=== PATIENT | male | born 1955 | race Caucasian/White ===

== ENCOUNTER 2020-04-30 10:54 | Observation (INO) | payer MEDICARE, OTHER ==
[2020-04-30] MEDS ORDERED: Sodium Chloride 0.9% 2.5 ML Syringe FLUSH PRN (11:01)
[2020-04-30] MEDS ORDERED: Sodium Chloride 0.9% 10 ML SDV IV PRN (11:01)
[2020-04-30] MEDS ORDERED: Sodium Chloride 0.9% 10 ML Syringe FLUSH PRN (11:01)
--- NOTE | 2020-04-30 11:24 | EDM.PDOC ---
ED HPI GENERAL MEDICAL PROBLEM - General Chief Complaint: Neuro Symptoms/Deficits Stated Complaint: STROKE SYMPTOMS Time Seen by Provider: 04/30/20 11:05 Source of Information: Reports: Patient History Limitations: Reports: No Limitations - History of Present Illness INITIAL COMMENTS - FREE TEXT/NARRATIVE: 65-year-old male no significant past medical history presents for concern for stroke. Patient was seen in an outpatient clinic by this morning. He woke up around 7 AM and states that shortly after waking up he noticed weakness of his left upper extremity. It is primarily noticed in his fourth and fifth digits of his left hand. No associated numbness or tingling sensation, sensory deficit. No weakness of lower extremities. Denies slurred speech, confusion, word finding difficulty. He took 2 baby aspirins at home prior to arrival. He thinks that symptoms were not present after waking up and states that they happen shortly after waking up, but he says that he cannot be certain. - Related Data Allergies Allergy/AdvReac Type Severity Reaction Status Date / Time No Known Allergies Allergy Verified 04/05/18 14:07 Home Meds: Home Meds Latanoprost [Xalatan 0.005% Ophth Soln] 1 drop EYEBOTH BEDTIME 04/05/16 [History] Aspirin 325 mg PO DAILY 04/05/18 [History] Sildenafil [Revatio] 2 - 4 tab PO ASDIRECTED PRN 04/05/18 [History] Past Medical History HEENT History: Reports: Glaucoma, Other (See Below) (right TMJ problems) Other HEENT History: uses glasses for driving Cardiovascular History: Reports: Other (See Below) Other Cardiovascular History: mild mitral regurgitation per chart, h/o HTN, h/o increased cholesterol, small vessel cerebrovascular disease Respiratory History: Reports: Sleep Apnea, SOB (on exertion) Other Respiratory History: uses CPAP Gastrointestinal History: Reports: Colon Polyp, Hiatal Hernia, Other (See Below) (diverticulosis diverticulosis) Other Genitourinary History: UTI in December, Musculoskeletal History: Reports: Arthritis, Fracture, Gout Other Musculoskeletal History: only takes medication during flare ups, hx of fx left arm Neurological History: Reports: Other (See Below) Other Neuro History: was told he had "mini strokes" and was prescribed a CPAP machine Psychiatric History: Reports: None Endocrine/Metabolic History: Reports: Obesity/BMI 30+ Hematologic History: Reports: None Immunologic History: Reports: None Oncologic (Cancer) History: Reports: None Dermatologic History: Reports: None - Past Surgical History Head Surgeries/Procedures: Reports: None HEENT Surgical History: Reports: Tonsillectomy GI Surgical History: Reports: Colonoscopy (x2) Musculoskeletal Surgical History: Reports: Arthroscopic Knee - History Comment History Comment: denies etoh ED ROS GENERAL - Review of Systems Review Of Systems: Comprehensive ROS is negative, except as noted in HPI. ED EXAM, GENERAL - Physical Exam Exam: See Below Exam Limited By: No Limitations General Appearance: Alert, WD/WN, No Apparent Distress Eye Exam: Bilateral Eye: EOMI, PERRL Ears: Normal External Exam Nose: Normal Inspection Throat/Mouth: Normal Inspection, Normal Voice, No Airway Compromise, Perioral Cyanosis Head: Atraumatic Neck: Normal Inspection Respiratory/Chest: No Respiratory Distress, Lungs Clear, Normal Breath Sounds, No Accessory Muscle Use Cardiovascular: Normal Peripheral Pulses, Regular Rate, Rhythm, No Edema GI/Abdominal: Soft, Non-Tender Back Exam: Normal Inspection Extremities: Normal Inspection Neurological: Alert, Oriented, CN II-XII Intact, Normal Cognition, Normal Gait, Other (no sensory deficits, no pronater drift b/l UE, no drift LE, normal mm strength b/l LE, normal national sales trainer strength RUE, reduced national sales trainer strength 4/5 LUE) Psychiatric: Normal Affect, Normal Mood Skin Exam: Warm, Dry, Intact, Normal Color #1 Interpretation EKG Date: 04/30/20 Time: 11:00 Rhythm: NSR Rate (Beats/Min): 65 [place]: Normal P-Wave: Present QRS: Normal ST-T: Normal QT: Normal MO/PQ Interval: 186 Course - Vital Signs Last Recorded V/S: Last Vital Signs Temp 97.2 F 04/30/20 11:06 Pulse 55 L 04/30/20 11:06 Resp 17 04/30/20 11:06 BP 152/102 H 04/30/20 11:06 Pulse Ox 97 04/30/20 11:06 - Orders/Labs/Meds Orders: Active Orders 24 hr Category Date Time Status Assess Neurological Status [RC] ASDIRECTED Care 04/30/20 11:01 Active Bedrest [RC] ASDIRECTED Care 04/30/20 11:01 Active Cardiac Monitoring [RC] . DIRECTED Care 04/30/20 11:01 Active EKG Documentation Completion [RC] STAT Care 04/30/20 11:01 Active Initiate Acute Stroke Protocol [RC] STAT Care 04/30/20 11:01 Active NIH Stroke Scale [RC] ASDIRECTED Care 04/30/20 11:01 Active Nursing Bedside Swallow Screen [RC] ASDIRECTED Care 04/30/20 11:01 Active Oxygen Therapy [RC] ASDIRECTED Care 04/30/20 11:01 Active Vital Signs [RC] Q15M Care 04/30/20 11:01 Active COMPREHENSIVE METABOLIC PN,CMP [CHEM] Stat Lab 04/30/20 11:10 Received TROPONIN I [CHEM] Stat Lab 04/30/20 11:10 Received TSH [CHEM] Stat Lab 04/30/20 11:10 Received Sodium Chloride 0.9% [Normal Saline] Med 04/30/20 11:01 Active 10 ml IV ASDIRECTED PRN Sodium Chloride 0.9% [Saline Flush] Med 04/30/20 11:01 Active 10 ml FLUSH ASDIRECTED PRN Sodium Chloride 0.9% [Saline Flush] Med 04/30/20 11:01 Active 2.5 ml FLUSH ASDIRECTED PRN Peripheral IV Insertion Adult [OM.PC] Stat Oth 04/30/20 11:01 Ordered Peripheral IV Insertion Adult [OM.PC] Stat Oth 04/30/20 11:01 Ordered Medication Orders Sodium Chloride (Saline Flush) 10 ml FLUSH ASDIRECTED PRN PRN Reason: Keep Vein Open Last Admin: 04/30/20 12:54 Dose: 10 ml Documented by: ARANANG Sodium Chloride (Saline Flush) 2.5 ml FLUSH ASDIRECTED PRN PRN Reason: Keep Vein Open Last Admin: 04/30/20 12:54 Dose: 2.5 ml Documented by: ARANANG Sodium Chloride (Normal Saline) 10 ml IV ASDIRECTED PRN PRN Reason: IV Use Labs: Laboratory Tests 04/30/20 04/30/20 04/30/20 Range/Units 11:10 11:10 13:15 WBC 8.13 (4.0-11.0) K/uL RBC 5.23 (4.50-5.90) M/uL Hgb 16.1 (13.0-17.0) g/dL Hct 48.1 (38.0-50.0) % MCV 92.0 (80.0-98.0) fL MCH 30.8 (27.0-32.0) pg MCHC 33.5 (31.0-37.0) g/dL RDW Std Deviation 44.5 (28.0-62.0) fl RDW Coeff of Francine 13 (11.0-15.0) % Plt Count 329 (150-400) K/uL MPV 10.50 (7.40-12.00) fL Neut % (Auto) 63.5 (48.0-80.0) % Lymph % (Auto) 26.1 (16.0-40.0) % Kimball % (Auto) 6.6 (0.0-15.0) % Eos % (Auto) 3.3 (0.0-7.0) % Baso % (Auto) 0.5 (0.0-1.5) % Neut # (Auto) 5.2 (1.4-5.7) K/uL Lymph # (Auto) 2.1 (0.6-2.4) K/uL Kimball # (Auto) 0.5 (0.0-0.8) K/uL Eos # (Auto) 0.3 (0.0-0.7) K/uL Baso # (Auto) 0.0 (0.0-0.1) K/uL Nucleated RBC % 0.0 /100WBC Nucleated RBCs # 0 K/uL INR 1.07 APTT 27.4 (18.6-31.3) SEC Urine Color YELLOW Urine Appearance CLEAR Urine pH 7.0 (5.0-8.0) Ur Specific [place] <= 1.005 (1.001-1.035) Urine Protein NEGATIVE (NEGATIVE) mg/dL Urine Glucose (UA) NEGATIVE (NEGATIVE) mg/dL Urine Ketones NEGATIVE (NEGATIVE) mg/dL Urine Occult Blood NEGATIVE (NEGATIVE) Urine Nitrite NEGATIVE (NEGATIVE) Urine Bilirubin NEGATIVE (NEGATIVE) Urine Urobilinogen 0.2 (<2.0) EU/dL Ur Leukocyte Esterase NEGATIVE (NEGATIVE) Urine RBC 0-1 (0-2/HPF) Urine WBC 0-1 (0-5/HPF) Ur Epithelial Cells RARE (NONE-FEW) Urine Bacteria RARE (NEGATIVE) Meds: Medications Generic Name Dose Route Start Last Admin Trade Name Freq PRN Reason Stop Dose Admin Sodium Chloride 10 ml 04/30/20 11:01 04/30/20 12:54 Saline Flush FLUSH 10 ml ASDIRECTED PRN Administration Keep Vein Open Sodium Chloride 2.5 ml 04/30/20 11:01 04/30/20 12:54 Saline Flush FLUSH 2.5 ml ASDIRECTED PRN Administration Keep Vein Open Sodium Chloride 10 ml 04/30/20 11:01 Normal Saline IV ASDIRECTED PRN IV Use Discontinued Medications Generic Name Dose Route Start Last Admin Trade Name Dakotaq PRN Reason Stop Dose Admin Aspirin 162 mg 04/30/20 13:06 04/30/20 13:28 Aspirin PO 04/30/20 13:07 162 mg ONETIME ONE Administration Clopidogrel Bisulfate 600 mg 04/30/20 13:05 04/30/20 13:29 Plavix PO 04/30/20 13:06 600 mg ONETIME ONE Administration Iopamidol 100 ml 04/30/20 11:29 04/30/20 11:29 Isovue Multipack-370 (76%) IVPUSH 04/30/20 11:30 100 ml ONETIME ONE Administration - Re-Assessments/Exams Free Text/Narrative Re-Assessment/Exam: 04/30/20 11:23 Patient presents with concern for CVA. Physical exam is remarkable for mild left upper extremity weakness. Possible ulnar nerve neuropathy considering distribution of patient's symptoms. A stroke code was called, and patient was taken for emergent head CT which was read by me as nonhemorrhagic. We will follow up CTA head and neck, MRI brain, labs, and disposition accordingly 04/30/20 12:14 CT head, CTA head and neck both normal. Patient was able to go for MRI, results are pending. Will follow up and disposition accordingly. 04/30/20 13:33 Spoke with neurologist at my not Dr. Galeano who recommends physical therapy consult, occupational therapy consult, carotid Doppler ultrasounds, TSH, RPR, ESR, fasting lipid panel, hemoglobin A1c, and starting a statin medication. He does not think that the patient requires transfer if this can all be done at our hospital. He notes that he is available for consultation should the inpatient team have any questions. 04/30/20 13:48 Hospitalist is comfortable with plan. Will admit to hospital Departure - Departure Time of Disposition: 13:48 Disposition: Admitted As Inpatient 64 Condition: Good Clinical Impression: CVA (cerebral vascular accident) Qualifiers: CVA mechanism: thrombosis Precerebral and cerebral artery: unspecified precerebral artery Qualified Code(s): I63.00 - Cerebral infarction due to thrombosis of unspecified precerebral artery - Discharge Information Referrals: Bright Faye MD [Primary Care Provider] - Forms: ED Department Discharge Sepsis Event Note (ED) - Focused Exam Vital Signs: Vital Signs Temp Pulse Resp BP Pulse Ox 04/30/20 11:06 97.2 F 55 L 17 152/102 H 97
[2020-04-30] MEDS ORDERED: Iopamidol 755 MG/ML 500 ML Multipack Bottle IVPUSH ONE (11:29)
--- NOTE | 2020-04-30 12:07 | CT ---
DATE: 04/30/2020. CLINICAL HISTORY: Patient with acute onset of left upper extremity weakness. TECHNIQUE: Standard helical CT image acquisition of the brain following by standard helical CT image acquisition through the head and neck after intravenous contrast bolus enhancement. Multiplanar reconstructed images performed on a separate workstation. COMPARISON: Head CT dated 09/27/2012. FINDINGS: CT HEAD: There is no intracranial hemorrhage. No extra-axial collection, mass effect, or midline shift. Patchy hypoattenuation within the white matter of both hemispheres likely reflects sequela of chronic small vessel ischemia. Ventricles are normal in size and morphology for patient age. The calvarium is unremarkable. The orbits are unremarkable. Findings consistent with chronic sinusitis involving the bilateral maxillary and frontal sinuses as well as the anterior ethmoid air cells. The mastoid air cells are unremarkable. The soft tissues are unremarkable. CT ANGIOGRAM HEAD AND NECK: The origins of the great vessels from the aortic arch are patent. The origins of the right and left vertebral arteries are patent. The common carotid arteries are patent. There is no significant stenosis at the origin of the right internal carotid artery. There is no significant stenosis at the origin of the left internal carotid artery. The rest of the cervical segments of the internal carotid arteries are patent up to their intracranial segments, noting marked tortuosity the proximal and mid cervical segment of the right internal carotid artery and a tortuous subpetrosal loop of the distal cervical left internal carotid artery. The intracranial segments of the internal carotid arteries are patent. The anterior and middle cerebral arteries are patent. Note is made of early trifurcation of the left middle cerebral artery. The anterior communicating artery is visualized and is within normal limits. The vertebral arteries are codominant. The cervical segments of the vertebral arteries are patent. The intracranial segments of the vertebral arteries are patent. The basilar trunk and posterior cerebral arteries are patent. There is normal opacification of major intracranial venous structures. The visualized lung apices are unremarkable There are multiple small nodules within the right greater than left thyroid lobes with the largest measuring approximately 7 mm and located within the posterior right lobe. There are degenerative changes in the cervical spine. IMPRESSION: 1. No acute intracranial hemorrhage. 2. Findings consistent with sequela of chronic small vessel ischemia. 3. Normal CT angiogram of the head and neck. More specifically, no evidence of intracranial proximal large vessel occlusion or hemodynamically significant stenosis within the cervical arterial vasculature. Please note that all CT scans at this facility use dose modulation, iterative reconstruction, and/or weight-based dosing when appropriate to reduce radiation dose to as low as reasonably achievable. Dictated by Chandrakant Saldaña MD @ Apr 30 2020 11:34AM Signed by Dr. Chandrakant Saldaña @ Apr 30 2020 12:05PM
--- NOTE | 2020-04-30 12:42 | MR ---
INDICATION: Left upper extremity weakness. TECHNIQUE: Brain MRI without contrast. The following sequences were obtained: 3D T1 weighted sequence. DWI and ADC mapping sequences. Axial FLAIR and YASMIN T2 weighted sequences. Axial SWI sequence. COMPARISON: Head CT from 04/30/2020. FINDINGS: Small oblong focus of true diffusion restriction involving the right mid precentral gyrus and subjacent centrum semiovale, compatible with an acute infarction no recent infarcts elsewhere within the brain. Tiny chronic infarct left anterior frontal lobe. Several small chronic infarcts within the bilateral cerebellar hemispheres. No evidence of acute or chronic intracranial blood products. Mild generalized parenchymal volume loss. Patchy T2 hyperintensities within the supratentorial white matter, most likely reflecting chronic microvascular ischemic changes. No mass effect or herniation. No hydrocephalus or extra-axial collections. The pituitary gland, parasellar structures and optic chiasm are normal. All the major intracranial vascular structures demonstrate normal flow-related signal. The orbital contents are normal. No calvarial or skull base marrow signal abnormality. Diffuse moderate paranasal sinus mucosal thickening. No extracranial soft tissue findings. IMPRESSION: 1. Small acute cortical infarct right mid precentral gyrus, which corresponds to the provided symptoms of left upper extremity weakness. No acute infarctions elsewhere within the brain. 2. No acute or chronic intracranial hemorrhage. 3. Small chronic cortical infarct left anterior frontal lobe. Small chronic infarcts bilateral cerebellar hemispheres. Minimal chronic microvascular ischemic changes within supratentorial white matter. Dictated by Jeremy Lucio MD @ Apr 30 2020 12:34PM Signed by Dr. Jeremy Lucio @ Apr 30 2020 12:40PM
[2020-04-30] MEDS ORDERED: Clopidogrel 75 MG Tab PO ONE (13:05)
[2020-04-30] MEDS ORDERED: Aspirin 81 MG Tab.Chew PO ONE (13:06)
[2020-04-30 13:39] LABS: BLOOD UREA NITROGEN,BUN 20 mg/dL (7.0-18.0); CARBON DIOXIDE,CO2 24.3 mmol/L (21.0-32.0); CHLORIDE,CL 104 mmol/L (98-107); GLUCOSE RANDOM 110 mg/dL (74-106); POTASSIUM,K 4.1 mmol/L (3.5-5.1); SODIUM,NA 140 mmol/L (136-148)
[2020-04-30] MEDS ORDERED: atorvaSTATin 40 MG Tab PO ONE ×2 (13:53→18:15)
[2020-04-30 14:20] LABS: HEMOGLOBIN A1C 5.6 % (4.5-6.2)
[2020-04-30] MEDS ORDERED: Ondansetron 4 MG/2 ML SDV IVPUSH PRN (14:50)
[2020-04-30] MEDS ORDERED: Acetaminophen 325 MG Tab PO PRN (14:50)
--- NOTE | 2020-04-30 14:57 | PCM.HP.2 ---
H&P History of Present Illness - General Date of Service: 04/30/20 Admit Problem/Dx: Admission Diagnosis/Problem Admission Diagnosis/Problem CVA, Cerebrovascular accident Source of Information: Patient History Limitations: Reports: No Limitations - History of Present Illness Initial Comments - Free Text/Narative: 65-year-old male male presents after noticing left hand weakness that started this morning. He has a PMH of colon cancer. Patient reports that shortly after awakening at 7 AM this morning he noticed his left hand felt weak and felt numb. He did not have any speech difficulty, facial drooping or any other limb weakness. He took 2 baby aspirin prior to coming to the hospital. Patient denies any fevers, chills, sore throat, cough, SOB, chest pain, nausea, vomiting, abdominal pain, diarrhea, blood in stool or blood in urine. In the ER, EKG showed normal sinus rhythm. Patient given aspirin 162 mg x 1 and Plavix [address] head, CTA head and CTA neck were negative for any acute findings. MRI brain showed small acute cortical infarct of right mid precentral gyrus. ER provided contact neurologist Dr. Galeano in [place], [place] who advised that transfer was not necessary for evaluation by neurologist and that he would be available for phone consult if needed. Patient was admitted for further evaluation and treatment. - Related Data Allergies/Adverse Reactions: Allergies Allergy/AdvReac Type Severity Reaction Status Date / Time No Known Allergies Allergy Verified 04/05/18 14:07 Home Medications: Home Meds Latanoprost [Xalatan 0.005% Ophth Soln] 1 drop EYEBOTH BEDTIME 04/05/16 [History] Aspirin 325 mg PO DAILY 04/05/18 [History] Sildenafil [Revatio] 2 - 4 tab PO ASDIRECTED PRN 04/05/18 [History] Past Medical History HEENT History: Reports: Glaucoma, Other (See Below) (right TMJ problems) Other HEENT History: uses glasses for driving Cardiovascular History: Reports: Other (See Below) Other Cardiovascular History: mild mitral regurgitation per chart, h/o HTN, h/o increased cholesterol, small vessel cerebrovascular disease Respiratory History: Reports: Sleep Apnea, SOB (on exertion) Other Respiratory History: uses CPAP Gastrointestinal History: Reports: Colon Polyp, Hiatal Hernia, Other (See Below) (diverticulosis diverticulosis) Other Gastrointestinal History: hx of colon ca Other Genitourinary History: UTI in December, Musculoskeletal History: Reports: Arthritis, Fracture, Gout Other Musculoskeletal History: only takes medication during flare ups, hx of fx left arm Neurological History: Reports: Other (See Below) Other Neuro History: was told he had "mini strokes" and was prescribed a CPAP machine Psychiatric History: Reports: None Endocrine/Metabolic History: Reports: Obesity/BMI 30+ Hematologic History: Reports: None Immunologic History: Reports: None Oncologic (Cancer) History: Reports: None Dermatologic History: Reports: None - Past Surgical History Head Surgeries/Procedures: Reports: None HEENT Surgical History: Reports: Tonsillectomy GI Surgical History: Reports: Colonoscopy (x2) Musculoskeletal Surgical History: Reports: Arthroscopic Knee - History Comment History Comment: denies etoh Social & Family History - Family History Family Medical History: Noncontributory - Tobacco Use Tobacco Use Status *Q: Never Tobacco User Second Hand Smoke Exposure: No - Caffeine Use Caffeine Use: Reports: Coffee - Recreational Drug Use Recreational Drug Use: No H&P Review of Systems - Review of Systems: Review Of Systems: Comprehensive ROS is negative, except as noted in HPI. Exam - Exam Exam: See Below - Vital Signs Vital Signs: Last Vital Signs Temp 36.2 C 04/30/20 11:06 Pulse 56 L 04/30/20 13:54 Resp 17 04/30/20 13:54 BP 136/87 04/30/20 13:54 Pulse Ox 96 04/30/20 13:54 Weight: 85.366 kg - Exam General: Alert, Oriented, Cooperative, Other (NAD) HEENT: Conjunctiva Clear, EOMI, Hearing Intact, Posterior Pharynx Clear, Pupils Equal, Pupils Reactive Neck: Supple, Trachea Midline Lungs: Clear to Auscultation, Normal Respiratory Effort Cardiovascular: Regular Rate, Regular Rhythm GI/Abdominal Exam: Normal Bowel Sounds, Soft, Non-Tender, No Distention Extremities: Normal Inspection, No Pedal Edema Neurological: Cranial Nerves Intact, Normal Speech, Normal Tone, Sensation Intact, Other (5/5 strength in RUE. 4/5 strength in LUE with weakened wrestling coach strength. 5/5 strength in lower extremities b/l.) Neuro Extensive - Mental Status: Alert, Oriented x3, Normal Mood/Affect Psychiatric: Alert, Normal Affect, Normal Mood - Patient Data Lab Results Last 24 hrs: Laboratory Results - last 24 hr 04/30/20 04/30/20 04/30/20 Range/Units 11:10 11:10 11:10 WBC 8.13 (4.0-11.0) K/uL RBC 5.23 (4.50-5.90) M/uL Hgb 16.1 (13.0-17.0) g/dL Hct 48.1 (38.0-50.0) % MCV 92.0 (80.0-98.0) fL MCH 30.8 (27.0-32.0) pg MCHC 33.5 (31.0-37.0) g/dL RDW Std Deviation 44.5 (28.0-62.0) fl RDW Coeff of Francine 13 (11.0-15.0) % Plt Count 329 (150-400) K/uL MPV 10.50 (7.40-12.00) fL Neut % (Auto) 63.5 (48.0-80.0) % Lymph % (Auto) 26.1 (16.0-40.0) % Alcorn % (Auto) 6.6 (0.0-15.0) % Eos % (Auto) 3.3 (0.0-7.0) % Baso % (Auto) 0.5 (0.0-1.5) % Neut # (Auto) 5.2 (1.4-5.7) K/uL Lymph # (Auto) 2.1 (0.6-2.4) K/uL Alcorn # (Auto) 0.5 (0.0-0.8) K/uL Eos # (Auto) 0.3 (0.0-0.7) K/uL Baso # (Auto) 0.0 (0.0-0.1) K/uL Nucleated RBC % 0.0 /100WBC Nucleated RBCs # 0 K/uL ESR (0-19) mm/hr INR 1.07 APTT 27.4 (18.6-31.3) SEC Sodium 140 (136-148) mmol/L Potassium 4.1 (3.5-5.1) mmol/L Chloride 104 (98-107) mmol/L Carbon Dioxide 24.3 (21.0-32.0) mmol/L BUN 20 H (7.0-18.0) mg/dL Creatinine 1.1 (0.8-1.3) mg/dL Est Cr Clr Drug Dosing 65.17 mL/min Estimated GFR (MDRD) > 60.0 ml/min Glucose 110 H (74-106) mg/dL Hemoglobin A1c (4.5-6.2) % Calcium 9.4 (8.5-10.1) mg/dL Total Bilirubin 0.4 (0.2-1.0) mg/dL AST 14 L (15-37) IU/L ALT 25 (14-63) IU/L Alkaline Phosphatase 62 (46-116) U/L Troponin I < 0.050 (0.000-0.056) ng/mL Total Protein 7.4 (6.4-8.2) g/dL Albumin 4.3 (3.4-5.0) g/dL Globulin 3.1 (2.6-4.0) g/dL Albumin/Globulin Ratio 1.4 (0.9-1.6) TSH 3rd Generation 1.16 (0.36-3.74) uIU/mL Urine Color Urine Appearance Urine pH (5.0-8.0) Ur Specific Fielding (1.001-1.035) Urine Protein (NEGATIVE) mg/dL Urine Glucose (UA) (NEGATIVE) mg/dL Urine Ketones (NEGATIVE) mg/dL Urine Occult Blood (NEGATIVE) Urine Nitrite (NEGATIVE) Urine Bilirubin (NEGATIVE) Urine Urobilinogen (<2.0) EU/dL Ur Leukocyte Esterase (NEGATIVE) Urine RBC (0-2/HPF) Urine WBC (0-5/HPF) Ur Epithelial Cells (NONE-FEW) Urine Bacteria (NEGATIVE) SARS-CoV-2 RNA (EDGAR) (NEGATIVE) 04/30/20 04/30/20 04/30/20 Range/Units 11:10 11:10 13:15 WBC (4.0-11.0) K/uL RBC (4.50-5.90) M/uL Hgb (13.0-17.0) g/dL Hct (38.0-50.0) % MCV (80.0-98.0) fL MCH (27.0-32.0) pg MCHC (31.0-37.0) g/dL RDW Std Deviation (28.0-62.0) fl RDW Coeff of Francine (11.0-15.0) % Plt Count (150-400) K/uL MPV (7.40-12.00) fL Neut % (Auto) (48.0-80.0) % Lymph % (Auto) (16.0-40.0) % Alcorn % (Auto) (0.0-15.0) % Eos % (Auto) (0.0-7.0) % Baso % (Auto) (0.0-1.5) % Neut # (Auto) (1.4-5.7) K/uL Lymph # (Auto) (0.6-2.4) K/uL Alcorn # (Auto) (0.0-0.8) K/uL Eos # (Auto) (0.0-0.7) K/uL Baso # (Auto) (0.0-0.1) K/uL Nucleated RBC % /100WBC Nucleated RBCs # K/uL ESR 1 (0-19) mm/hr INR APTT (18.6-31.3) SEC Sodium (136-148) mmol/L Potassium (3.5-5.1) mmol/L Chloride (98-107) mmol/L Carbon Dioxide (21.0-32.0) mmol/L BUN (7.0-18.0) mg/dL Creatinine (0.8-1.3) mg/dL Est Cr Clr Drug Dosing mL/min Estimated GFR (MDRD) ml/min Glucose (74-106) mg/dL Hemoglobin A1c 5.6 (4.5-6.2) % Calcium (8.5-10.1) mg/dL Total Bilirubin (0.2-1.0) mg/dL AST (15-37) IU/L ALT (14-63) IU/L Alkaline Phosphatase (46-116) U/L Troponin I (0.000-0.056) ng/mL Total Protein (6.4-8.2) g/dL Albumin (3.4-5.0) g/dL Globulin (2.6-4.0) g/dL Albumin/Globulin Ratio (0.9-1.6) TSH 3rd Generation (0.36-3.74) uIU/mL Urine Color YELLOW Urine Appearance CLEAR Urine pH 7.0 (5.0-8.0) Ur Specific Fielding <= 1.005 (1.001-1.035) Urine Protein NEGATIVE (NEGATIVE) mg/dL Urine Glucose (UA) NEGATIVE (NEGATIVE) mg/dL Urine Ketones NEGATIVE (NEGATIVE) mg/dL Urine Occult Blood NEGATIVE (NEGATIVE) Urine Nitrite NEGATIVE (NEGATIVE) Urine Bilirubin NEGATIVE (NEGATIVE) Urine Urobilinogen 0.2 (<2.0) EU/dL Ur Leukocyte Esterase NEGATIVE (NEGATIVE) Urine RBC 0-1 (0-2/HPF) Urine WBC 0-1 (0-5/HPF) Ur Epithelial Cells RARE (NONE-FEW) Urine Bacteria RARE (NEGATIVE) SARS-CoV-2 RNA (EDGAR) (NEGATIVE) 04/30/20 Range/Units 13:35 WBC (4.0-11.0) K/uL RBC (4.50-5.90) M/uL Hgb (13.0-17.0) g/dL Hct (38.0-50.0) % MCV (80.0-98.0) fL MCH (27.0-32.0) pg MCHC (31.0-37.0) g/dL RDW Std Deviation (28.0-62.0) fl RDW Coeff of Francine (11.0-15.0) % Plt Count (150-400) K/uL MPV (7.40-12.00) fL Neut % (Auto) (48.0-80.0) % Lymph % (Auto) (16.0-40.0) % Alcorn % (Auto) (0.0-15.0) % Eos % (Auto) (0.0-7.0) % Baso % (Auto) (0.0-1.5) % Neut # (Auto) (1.4-5.7) K/uL Lymph # (Auto) (0.6-2.4) K/uL Alcorn # (Auto) (0.0-0.8) K/uL Eos # (Auto) (0.0-0.7) K/uL Baso # (Auto) (0.0-0.1) K/uL Nucleated RBC % /100WBC Nucleated RBCs # K/uL ESR (0-19) mm/hr INR APTT (18.6-31.3) SEC Sodium (136-148) mmol/L Potassium (3.5-5.1) mmol/L Chloride (98-107) mmol/L Carbon Dioxide (21.0-32.0) mmol/L BUN (7.0-18.0) mg/dL Creatinine (0.8-1.3) mg/dL Est Cr Clr Drug Dosing mL/min Estimated GFR (MDRD) ml/min Glucose (74-106) mg/dL Hemoglobin A1c (4.5-6.2) % Calcium (8.5-10.1) mg/dL Total Bilirubin (0.2-1.0) mg/dL AST (15-37) IU/L ALT (14-63) IU/L Alkaline Phosphatase (46-116) U/L Troponin I (0.000-0.056) ng/mL Total Protein (6.4-8.2) g/dL Albumin (3.4-5.0) g/dL Globulin (2.6-4.0) g/dL Albumin/Globulin Ratio (0.9-1.6) TSH 3rd Generation (0.36-3.74) uIU/mL Urine Color Urine Appearance Urine pH (5.0-8.0) Ur Specific Fielding (1.001-1.035) Urine Protein (NEGATIVE) mg/dL Urine Glucose (UA) (NEGATIVE) mg/dL Urine Ketones (NEGATIVE) mg/dL Urine Occult Blood (NEGATIVE) Urine Nitrite (NEGATIVE) Urine Bilirubin (NEGATIVE) Urine Urobilinogen (<2.0) EU/dL Ur Leukocyte Esterase (NEGATIVE) Urine RBC (0-2/HPF) Urine WBC (0-5/HPF) Ur Epithelial Cells (NONE-FEW) Urine Bacteria (NEGATIVE) SARS-CoV-2 RNA (EDGAR) NEGATIVE (NEGATIVE) Result Diagrams: 04/30/20 11:10 04/30/20 11:10 Sepsis Event Note - Evaluation Sepsis Screening Result: No Definite Risk - Focused Exam Vital Signs: Vital Signs Temp Pulse Resp BP Pulse Ox 04/30/20 13:54 56 L 17 136/87 96 04/30/20 11:51 58 L 17 142/88 H 96 04/30/20 11:36 60 17 149/92 H 96 04/30/20 11:21 58 L 17 142/88 H 97 04/30/20 11:06 36.2 C 55 L 17 152/102 H 97 - Problem List (1) CVA (cerebral vascular accident) SNOMED Code(s): 425912107 ICD Code: I63.9 - CEREBRAL INFARCTION, UNSPECIFIED Status: Acute Current Visit: Yes Qualifiers: CVA mechanism: thrombosis Precerebral and cerebral artery: unspecified precerebral artery Qualified Code(s): I63.00 - Cerebral infarction due to thrombosis of unspecified precerebral artery (2) History of colon cancer SNOMED Code(s): 597599158 ICD Code: Z85.038 - PERSONAL HISTORY OF MALIGNANT NEOPLASM OF LARGE INTESTINE Status: Acute Current Visit: Yes Problem List Initiated/Reviewed/Updated: Yes Orders Last 24hrs: Active Orders 24 hr Category Date Time Status Patient Status [ADT] Routine ADT 04/30/20 14:48 Active Bedrest [RC] ASDIRECTED Care 04/30/20 11:01 Active Cardiac Monitoring [RC] . DIRECTED Care 04/30/20 11:01 Active EKG Documentation Completion [RC] STAT Care 04/30/20 11:01 Active Initiate Acute Stroke Protocol [RC] STAT Care 04/30/20 11:01 Active NIH Stroke Scale [RC] ASDIRECTED Care 04/30/20 11:01 Active Neuro Check [RC] Q2H Care 04/30/20 14:54 Active Nursing Bedside Swallow Screen [RC] ASDIRECTED Care 04/30/20 14:52 Active Oxygen Therapy [RC] ASDIRECTED Care 04/30/20 11:01 Active Oxygen Therapy [RC] PRN Care 04/30/20 14:50 Active Up ad Monalisa [RC] ASDIRECTED Care 04/30/20 14:50 Active VTE/DVT Education [RC] PER UNIT ROUTINE Care 04/30/20 14:50 Active Vital Signs [RC] Q15M Care 04/30/20 11:01 Active Vital Signs [RC] Q4H Care 04/30/20 14:50 Active OT Evaluation and Treatment [CONS] Routine Cons 04/30/20 14:50 Active PT Evaluation and Treatment [CONS] Routine Cons 04/30/20 14:50 Active Echo Comp wo Cont [US] Urgent Exams 04/30/20 14:55 Ordered CBC WITH AUTO DIFF [HEME] AM Lab 05/01/20 05:11 Ordered COMPREHENSIVE METABOLIC PN,CMP [CHEM] AM Lab 05/01/20 05:11 Ordered LIPID PANEL [CHEM] Routine Lab 04/30/20 14:53 Ordered MAGNESIUM [CHEM] Routine Lab 04/30/20 14:53 Ordered PHOSPHORUS [CHEM] Routine Lab 04/30/20 14:53 Ordered RPR (SYPHILIS SERO) W/ RFLX [REF] Stat Lab 04/30/20 11:10 Received Acetaminophen [TylenoL] Med 04/30/20 14:50 Active 650 mg PO Q4H PRN Aspirin Med 05/01/20 09:00 Active 81 mg PO DAILY Enoxaparin [Lovenox] Med 04/30/20 21:00 Active 40 mg SUBCUT Q24H Ondansetron [Zofran] Med 04/30/20 14:50 Active 4 mg IVPUSH Q4H PRN Sodium Chloride 0.9% [Normal Saline] Med 04/30/20 11:01 Active 10 ml IV ASDIRECTED PRN Sodium Chloride 0.9% [Saline Flush] Med 04/30/20 11:01 Active 10 ml FLUSH ASDIRECTED PRN Sodium Chloride 0.9% [Saline Flush] Med 04/30/20 11:01 Active 2.5 ml FLUSH ASDIRECTED PRN atorvaSTATin [Lipitor] Med 05/01/20 09:00 Active 40 mg PO DAILY Peripheral IV Insertion Adult [OM.PC] Stat Oth 04/30/20 11:01 Ordered Peripheral IV Insertion Adult [OM.PC] Stat Oth 04/30/20 11:01 Ordered Resuscitation Status Routine Resus Stat 04/30/20 14:50 Ordered Medication Orders Acetaminophen (Tylenol) 650 mg PO Q4H PRN PRN Reason: Pain (Mild 1-3)/fever Aspirin (Aspirin) 81 mg PO DAILY CLEMENT Atorvastatin Calcium (Lipitor) 40 mg PO DAILY CLEMENT Enoxaparin Sodium (Lovenox) 40 mg SUBCUT Q24H CLEMENT Ondansetron HCl (Zofran) 4 mg IVPUSH Q4H PRN PRN Reason: Nausea Sodium Chloride (Saline Flush) 10 ml FLUSH ASDIRECTED PRN PRN Reason: Keep Vein Open Last Admin: 04/30/20 12:54 Dose: 10 ml Documented by: EMY Sodium Chloride (Saline Flush) 2.5 ml FLUSH ASDIRECTED PRN PRN Reason: Keep Vein Open Last Admin: 10/30/20 12:54 Dose: 2.5 ml Documented by: EMY Sodium Chloride (Normal Saline) 10 ml IV ASDIRECTED PRN PRN Reason: IV Use Assessment/Plan Comment:: Assessment and Plan: 1. CVA: - Admit to med/surg. Patient on telemetry. Will order ECHO. Neuro checks q4h. Will order bedside swallow study prior to starting diet. Will check HgbA1c, lipid panel and TSH. Continue aspirin and atorvastatin. Will allow for permissive HTN. - MRI brain showed small acute cortical infarct of right mid precentral gyrus. There is are also small chronic infarcts in left anterior frontal lobe and bila teral cerebellar hemispheres. - CT head, CTA head and neck were negative. 2. Left upper extremity weakness secondary to #1: - Consult PT/OT. 3. DVT prophylaxis: - Lovenox 40 mg subcut qd.
[2020-04-30] MEDS: Phosphorus #1 250 MG Tab PO SCH (20:58)
[2020-04-30] MEDS ORDERED: Latanoprost 0.005% Ophth Soln 2.5 ML Bottle EYEBOTH SCH (21:00)
[2020-04-30] MEDS ORDERED: Enoxaparin 40 MG/0.4 ML Syringe SUBCUT SCH (21:00)
[2020-05-01 00:18] VITALS: PULSE 63
[2020-05-01 03:47] VITALS: BP 102/70
[2020-05-01 06:26] LABS: BLOOD UREA NITROGEN,BUN 18 mg/dL (7.0-18.0); CHLORIDE,CL 106 mmol/L (98-107); GLUCOSE RANDOM 98 mg/dL (74-106); POTASSIUM,K 4.5 mmol/L (3.5-5.1); SODIUM,NA 142 mmol/L (136-148)
[2020-05-01] MEDS ORDERED: atorvaSTATin 40 MG Tab PO SCH (09:00)
[2020-05-01] MEDS ORDERED: Aspirin 81 MG Tab.Chew PO SCH (09:00)
[2020-05-01] MEDS: Phosphorus #1 250 MG Tab PO SCH (09:15)
--- NOTE | 2020-05-01 11:18 | PCM.DCSUM1 ---
Discharge Summary - Hospital Course Free Text/Narrative:: 65-year-old male admitted for acute CVA. He has a PMH of HOLLEY on CPAP and colon CA. Patient presented with complaints of LUE weakness. CT head, CTA head and neck were negative. MRI brain showed small acute cortical infarct of right mid precentral gyrus. There are also small chronic infarcts in the left anterior frontal lobe and bilateral cerebellar hemispheres. ECHO was ordered and is pending at time of discharge. PT consulted and recommended outpatient follow-up with occupational therapy. Patient discharged in stable condition with scripts for baby aspirin and atorvastatin daily. Advised to follow-up with PCP and neurology on discharge. All questions were addressed. - Discharge Data Discharge Date: 05/01/20 Discharge Disposition: Home, Self-Care 01 Condition: Stable - Referral to Home Health Primary Care Physician: Bright Faye MD - Discharge Diagnosis/Problem(s) (1) CVA (cerebral vascular accident) SNOMED Code(s): 310358024 ICD Code: I63.9 - CEREBRAL INFARCTION, UNSPECIFIED Status: Acute Current Visit: Yes Qualifiers: CVA mechanism: thrombosis Precerebral and cerebral artery: unspecified precerebral artery Qualified Code(s): I63.00 - Cerebral infarction due to thrombosis of unspecified precerebral artery (2) History of colon cancer SNOMED Code(s): 929462715 ICD Code: Z85.038 - PERSONAL HISTORY OF MALIGNANT NEOPLASM OF LARGE INTESTINE Status: Acute Current Visit: Yes - Patient Summary/Data Consults: Consultations 04/30/20 14:50 OT Evaluation and Treatment [CONS] Routine PT Evaluation and Treatment [CONS] Routine - Patient Instructions Diet: Usual Diet as Tolerated Activity: As Tolerated Notify Provider of: Fever, Increased Pain, Swelling and Redness, Drainage, Nausea and/or Vomiting Other/Special Instructions: Follow-up with occupational therapy. Phone number provided. - Discharge Plan *PRESCRIPTION DRUG MONITORING PROGRAM REVIEWED*: Not Applicable *COPY OF PRESCRIPTION DRUG MONITORING REPORT IN PATIENT RACHAEL: Not Applicable Prescriptions/Med Rec: Aspirin 81 mg PO DAILY 30 Days #30 tab.chew atorvaSTATin [Lipitor] 40 mg PO DAILY 30 Days #30 tablet Home Medications: Home Meds Latanoprost [Xalatan 0.005% Ophth Soln] 1 drop EYEBOTH BEDTIME 04/05/16 [History] Aspirin 81 mg PO DAILY 30 Days #30 tab.chew 05/01/20 [Rx] atorvaSTATin [Lipitor] 40 mg PO DAILY 30 Days #30 tablet 05/01/20 [Rx] Oxygen Therapy Mode: Room Air Patient Handouts: Stroke Prevention, [id number], Transient Ischemic Attack, [id number], Atorvastatin tablets, Aspirin, ASA oral tablets Referrals: Bright Faye MD [Primary Care Provider] - Daly Miranda MD [Physician] - - Discharge Summary/Plan Comment DC Time >30 min.: No - Patient Data Vitals - Most Recent: Last Vital Signs Temp 36.9 C 05/01/20 03:46 Pulse 63 05/01/20 03:46 Resp 18 05/01/20 03:46 BP 102/70 05/01/20 03:46 Pulse Ox 97 05/01/20 03:46 Weight - Most Recent: 87.362 kg I&O - Last 24 hours: Intake & Output 04/30/20 05/01/20 05/01/20 22:59 06:59 14:59 Intake Total 650 Output Total 700 Balance -50 Lab Results - Last 24 hrs: Laboratory Results - last 24 hr 04/30/20 04/30/20 04/30/20 Range/Units 11:10 11:10 11:10 WBC 8.13 (4.0-11.0) K/uL RBC 5.23 (4.50-5.90) M/uL Hgb 16.1 (13.0-17.0) g/dL Hct 48.1 (38.0-50.0) % MCV 92.0 (80.0-98.0) fL MCH 30.8 (27.0-32.0) pg MCHC 33.5 (31.0-37.0) g/dL RDW Std Deviation 44.5 (28.0-62.0) fl RDW Coeff of Francine 13 (11.0-15.0) % Plt Count 329 (150-400) K/uL MPV 10.50 (7.40-12.00) fL Neut % (Auto) 63.5 (48.0-80.0) % Lymph % (Auto) 26.1 (16.0-40.0) % [place] % (Auto) 6.6 (0.0-15.0) % Eos % (Auto) 3.3 (0.0-7.0) % Baso % (Auto) 0.5 (0.0-1.5) % Neut # (Auto) 5.2 (1.4-5.7) K/uL Lymph # (Auto) 2.1 (0.6-2.4) K/uL [place] # (Auto) 0.5 (0.0-0.8) K/uL Eos # (Auto) 0.3 (0.0-0.7) K/uL Baso # (Auto) 0.0 (0.0-0.1) K/uL Nucleated RBC % 0.0 /100WBC Nucleated RBCs # 0 K/uL ESR (0-19) mm/hr INR 1.07 APTT 27.4 (18.6-31.3) SEC Sodium 140 (136-148) mmol/L Potassium 4.1 (3.5-5.1) mmol/L Chloride 104 (98-107) mmol/L Carbon Dioxide 24.3 (21.0-32.0) mmol/L BUN 20 H (7.0-18.0) mg/dL Creatinine 1.1 (0.8-1.3) mg/dL Est Cr Clr Drug Dosing 65.17 mL/min Estimated GFR (MDRD) > 60.0 ml/min Glucose 110 H (74-106) mg/dL Hemoglobin A1c (4.5-6.2) % Calcium 9.4 (8.5-10.1) mg/dL Phosphorus (2.6-4.7) mg/dL Magnesium (1.8-2.4) mg/dL Total Bilirubin 0.4 (0.2-1.0) mg/dL AST 14 L (15-37) IU/L ALT 25 (14-63) IU/L Alkaline Phosphatase 62 (46-116) U/L Troponin I < 0.050 (0.000-0.056) ng/mL Total Protein 7.4 (6.4-8.2) g/dL Albumin 4.3 (3.4-5.0) g/dL Globulin 3.1 (2.6-4.0) g/dL Albumin/Globulin Ratio 1.4 (0.9-1.6) Triglycerides (0-200) mg/dL Cholesterol (50-200) mg/dL LDL Cholesterol, Calc (60-180) mg/dL VLDL Cholesterol (5-55) mg/dL HDL Cholesterol (40-60) mg/dL Cholesterol/HDL Ratio (3.3-6.0) TSH 3rd Generation 1.16 (0.36-3.74) uIU/mL Urine Color Urine Appearance Urine pH (5.0-8.0) Ur Specific [place] (1.001-1.035) Urine Protein (NEGATIVE) mg/dL Urine Glucose (UA) (NEGATIVE) mg/dL Urine Ketones (NEGATIVE) mg/dL Urine Occult Blood (NEGATIVE) Urine Nitrite (NEGATIVE) Urine Bilirubin (NEGATIVE) Urine Urobilinogen (<2.0) EU/dL Ur Leukocyte Esterase (NEGATIVE) Urine RBC (0-2/HPF) Urine WBC (0-5/HPF) Ur Epithelial Cells (NONE-FEW) Urine Bacteria (NEGATIVE) SARS-CoV-2 RNA (EDGAR) (NEGATIVE) 04/30/20 04/30/20 04/30/20 Range/Units 11:10 11:10 11:10 WBC (4.0-11.0) K/uL RBC (4.50-5.90) M/uL Hgb (13.0-17.0) g/dL Hct (38.0-50.0) % MCV (80.0-98.0) fL MCH (27.0-32.0) pg MCHC (31.0-37.0) g/dL RDW Std Deviation (28.0-62.0) fl RDW Coeff of Francine (11.0-15.0) % Plt Count (150-400) K/uL MPV (7.40-12.00) fL Neut % (Auto) (48.0-80.0) % Lymph % (Auto) (16.0-40.0) % [place] % (Auto) (0.0-15.0) % Eos % (Auto) (0.0-7.0) % Baso % (Auto) (0.0-1.5) % Neut # (Auto) (1.4-5.7) K/uL Lymph # (Auto) (0.6-2.4) K/uL [place] # (Auto) (0.0-0.8) K/uL Eos # (Auto) (0.0-0.7) K/uL Baso # (Auto) (0.0-0.1) K/uL Nucleated RBC % /100WBC Nucleated RBCs # K/uL ESR 1 (0-19) mm/hr INR APTT (18.6-31.3) SEC Sodium (136-148) mmol/L Potassium (3.5-5.1) mmol/L Chloride (98-107) mmol/L Carbon Dioxide (21.0-32.0) mmol/L BUN (7.0-18.0) mg/dL Creatinine (0.8-1.3) mg/dL Est Cr Clr Drug Dosing mL/min Estimated GFR (MDRD) ml/min Glucose (74-106) mg/dL Hemoglobin A1c 5.6 (4.5-6.2) % Calcium (8.5-10.1) mg/dL Phosphorus 2.4 L (2.6-4.7) mg/dL Magnesium 2.1 (1.8-2.4) mg/dL Total Bilirubin (0.2-1.0) mg/dL AST (15-37) IU/L ALT (14-63) IU/L Alkaline Phosphatase (46-116) U/L Troponin I (0.000-0.056) ng/mL Total Protein (6.4-8.2) g/dL Albumin (3.4-5.0) g/dL Globulin (2.6-4.0) g/dL Albumin/Globulin Ratio (0.9-1.6) Triglycerides 70 (0-200) mg/dL Cholesterol 173 (50-200) mg/dL LDL Cholesterol, Calc 108 (60-180) mg/dL VLDL Cholesterol 14 (5-55) mg/dL HDL Cholesterol 51 (40-60) mg/dL Cholesterol/HDL Ratio 3.4 (3.3-6.0) TSH 3rd Generation (0.36-3.74) uIU/mL Urine Color Urine Appearance Urine pH (5.0-8.0) Ur Specific [place] (1.001-1.035) Urine Protein (NEGATIVE) mg/dL Urine Glucose (UA) (NEGATIVE) mg/dL Urine Ketones (NEGATIVE) mg/dL Urine Occult Blood (NEGATIVE) Urine Nitrite (NEGATIVE) Urine Bilirubin (NEGATIVE) Urine Urobilinogen (<2.0) EU/dL Ur Leukocyte Esterase (NEGATIVE) Urine RBC (0-2/HPF) Urine WBC (0-5/HPF) Ur Epithelial Cells (NONE-FEW) Urine Bacteria (NEGATIVE) SARS-CoV-2 RNA (EDGAR) (NEGATIVE) 04/30/20 04/30/20 05/01/20 Range/Units 13:15 13:35 05:45 WBC 8.47 (4.0-11.0) K/uL RBC 4.96 (4.50-5.90) M/uL Hgb 15.1 (13.0-17.0) g/dL Hct 46.2 (38.0-50.0) % MCV 93.1 (80.0-98.0) fL MCH 30.4 (27.0-32.0) pg MCHC 32.7 (31.0-37.0) g/dL RDW Std Deviation 45.8 (28.0-62.0) fl RDW Coeff of Francine 14 (11.0-15.0) % Plt Count 298 (150-400) K/uL MPV 9.90 (7.40-12.00) fL Neut % (Auto) 45.4 L (48.0-80.0) % Lymph % (Auto) 38.6 (16.0-40.0) % [place] % (Auto) 8.6 (0.0-15.0) % Eos % (Auto) 7.0 (0.0-7.0) % Baso % (Auto) 0.4 (0.0-1.5) % Neut # (Auto) 3.9 (1.4-5.7) K/uL Lymph # (Auto) 3.3 H (0.6-2.4) K/uL [place] # (Auto) 0.7 (0.0-0.8) K/uL Eos # (Auto) 0.6 (0.0-0.7) K/uL Baso # (Auto) 0.0 (0.0-0.1) K/uL Nucleated RBC % 0.0 /100WBC Nucleated RBCs # 0 K/uL ESR (0-19) mm/hr INR APTT (18.6-31.3) SEC Sodium (136-148) mmol/L Potassium (3.5-5.1) mmol/L Chloride (98-107) mmol/L Carbon Dioxide (21.0-32.0) mmol/L BUN (7.0-18.0) mg/dL Creatinine (0.8-1.3) mg/dL Est Cr Clr Drug Dosing mL/min Estimated GFR (MDRD) ml/min Glucose (74-106) mg/dL Hemoglobin A1c (4.5-6.2) % Calcium (8.5-10.1) mg/dL Phosphorus (2.6-4.7) mg/dL Magnesium (1.8-2.4) mg/dL Total Bilirubin (0.2-1.0) mg/dL AST (15-37) IU/L ALT (14-63) IU/L Alkaline Phosphatase (46-116) U/L Troponin I (0.000-0.056) ng/mL Total Protein (6.4-8.2) g/dL Albumin (3.4-5.0) g/dL Globulin (2.6-4.0) g/dL Albumin/Globulin Ratio (0.9-1.6) Triglycerides (0-200) mg/dL Cholesterol (50-200) mg/dL LDL Cholesterol, Calc (60-180) mg/dL VLDL Cholesterol (5-55) mg/dL HDL Cholesterol (40-60) mg/dL Cholesterol/HDL Ratio (3.3-6.0) TSH 3rd Generation (0.36-3.74) uIU/mL Urine Color YELLOW Urine Appearance CLEAR Urine pH 7.0 (5.0-8.0) Ur Specific [place] <= 1.005 (1.001-1.035) Urine Protein NEGATIVE (NEGATIVE) mg/dL Urine Glucose (UA) NEGATIVE (NEGATIVE) mg/dL Urine Ketones NEGATIVE (NEGATIVE) mg/dL Urine Occult Blood NEGATIVE (NEGATIVE) Urine Nitrite NEGATIVE (NEGATIVE) Urine Bilirubin NEGATIVE (NEGATIVE) Urine Urobilinogen 0.2 (<2.0) EU/dL Ur Leukocyte Esterase NEGATIVE (NEGATIVE) Urine RBC 0-1 (0-2/HPF) Urine WBC 0-1 (0-5/HPF) Ur Epithelial Cells RARE (NONE-FEW) Urine Bacteria RARE (NEGATIVE) SARS-CoV-2 RNA (EDGAR) NEGATIVE (NEGATIVE) 05/01/20 Range/Units 05:45 WBC (4.0-11.0) K/uL RBC (4.50-5.90) M/uL Hgb (13.0-17.0) g/dL Hct (38.0-50.0) % MCV (80.0-98.0) fL MCH (27.0-32.0) pg MCHC (31.0-37.0) g/dL RDW Std Deviation (28.0-62.0) fl RDW Coeff of Francine (11.0-15.0) % Plt Count (150-400) K/uL MPV (7.40-12.00) fL Neut % (Auto) (48.0-80.0) % Lymph % (Auto) (16.0-40.0) % [place] % (Auto) (0.0-15.0) % Eos % (Auto) (0.0-7.0) % Baso % (Auto) (0.0-1.5) % Neut # (Auto) (1.4-5.7) K/uL Lymph # (Auto) (0.6-2.4) K/uL [place] # (Auto) (0.0-0.8) K/uL Eos # (Auto) (0.0-0.7) K/uL Baso # (Auto) (0.0-0.1) K/uL Nucleated RBC % /100WBC Nucleated RBCs # K/uL ESR (0-19) mm/hr INR APTT (18.6-31.3) SEC Sodium 142 (136-148) mmol/L Potassium 4.5 (3.5-5.1) mmol/L Chloride 106 (98-107) mmol/L Carbon Dioxide 29.0 (21.0-32.0) mmol/L BUN 18 (7.0-18.0) mg/dL Creatinine 1.2 (0.8-1.3) mg/dL Est Cr Clr Drug Dosing 59.73 mL/min Estimated GFR (MDRD) > 60.0 ml/min Glucose 98 (74-106) mg/dL Hemoglobin A1c (4.5-6.2) % Calcium 8.9 (8.5-10.1) mg/dL Phosphorus 4.0 (2.6-4.7) mg/dL Magnesium 2.2 (1.8-2.4) mg/dL Total Bilirubin 0.6 (0.2-1.0) mg/dL AST 15 (15-37) IU/L ALT 23 (14-63) IU/L Alkaline Phosphatase 58 (46-116) U/L Troponin I (0.000-0.056) ng/mL Total Protein 6.6 (6.4-8.2) g/dL Albumin 3.8 (3.4-5.0) g/dL Globulin 2.8 (2.6-4.0) g/dL Albumin/Globulin Ratio 1.4 (0.9-1.6) Triglycerides (0-200) mg/dL Cholesterol (50-200) mg/dL LDL Cholesterol, Calc (60-180) mg/dL VLDL Cholesterol (5-55) mg/dL HDL Cholesterol (40-60) mg/dL Cholesterol/HDL Ratio (3.3-6.0) TSH 3rd Generation (0.36-3.74) uIU/mL Urine Color Urine Appearance Urine pH (5.0-8.0) Ur Specific [place] (1.001-1.035) Urine Protein (NEGATIVE) mg/dL Urine Glucose (UA) (NEGATIVE) mg/dL Urine Ketones (NEGATIVE) mg/dL Urine Occult Blood (NEGATIVE) Urine Nitrite (NEGATIVE) Urine Bilirubin (NEGATIVE) Urine Urobilinogen (<2.0) EU/dL Ur Leukocyte Esterase (NEGATIVE) Urine RBC (0-2/HPF) Urine WBC (0-5/HPF) Ur Epithelial Cells (NONE-FEW) Urine Bacteria (NEGATIVE) SARS-CoV-2 RNA (EDGAR) (NEGATIVE) Med Orders - Current: Current Medications Acetaminophen (Tylenol) 650 mg PO Q4H PRN PRN Reason: Pain (Mild 1-3)/fever Aspirin (Aspirin) 81 mg PO DAILY [facility] Last Admin: 05/01/20 09:16 Dose: 81 mg Documented by: Atorvastatin Calcium (Lipitor) 40 mg PO DAILY [facility] Last Admin: 05/01/20 09:14 Dose: 40 mg Documented by: Enoxaparin Sodium (Lovenox) 40 mg SUBCUT Q24H [facility] Last Admin: 04/30/20 20:57 Dose: 40 mg Documented by: Latanoprost (Xalatan 0.005% Oph Soln) 0 ml EYEBOTH BEDTIME [facility] Last Admin: 04/30/20 20:58 Dose: Not Given Documented by: Ondansetron HCl (Zofran) 4 mg IVPUSH Q4H PRN PRN Reason: Nausea Sodium Chloride (Saline Flush) 10 ml FLUSH ASDIRECTED PRN PRN Reason: Keep Vein Open Last Admin: 04/30/20 12:54 Dose: 10 ml Documented by: Sodium Chloride (Saline Flush) 2.5 ml FLUSH ASDIRECTED PRN PRN Reason: Keep Vein Open Last Admin: 04/30/20 12:54 Dose: 2.5 ml Documented by: Sodium Chloride (Normal Saline) 10 ml IV ASDIRECTED PRN PRN Reason: IV Use Discontinued Medications Aspirin (Aspirin) 162 mg PO ONETIME ONE Stop: 04/30/20 13:07 Last Admin: 04/30/20 13:28 Dose: 162 mg Documented by: Atorvastatin Calcium (Lipitor) 40 mg PO ONETIME ONE Stop: 04/30/20 18:16 Last Admin: 04/30/20 18:17 Dose: 40 mg Documented by: Clopidogrel Bisulfate (Plavix) 600 mg PO ONETIME ONE Stop: 04/30/20 13:06 Last Admin: 04/30/20 13:29 Dose: 600 mg Documented by: Iopamidol (Isovue Multipack-370 (76%)) 100 ml IVPUSH ONETIME ONE Stop: 04/30/20 11:30 Last Admin: 04/30/20 11:29 Dose: 100 ml Documented by: Sodium Phosphate (Neutra-Phos) 250 mg PO BID [facility] Stop: 05/01/20 09:01 Last Admin: 05/01/20 09:15 Dose: 250 mg Documented by:
--- NOTE | 2020-05-04 12:20 | ECHO ---
EXAM DATE: 04/30/20 PATIENT'S AGE: 65 The ECHO report has been scanned into [employer] and can be seen in this patient's EMR (Electronic Medical Record) under the REPORTS section. The report has also been scanned into PACS. MAIKOL
== END 2020-05-01 12:48 | disposition home or self-care (01) ==
LOC: MW.ED 10:54 → MW.MS 15:26
PROVIDERS: ADMIT Student in an Organized Health Care Education/Training Program; ATTEND Student in an Organized Health Care Education/Training Program
DX: I63.9 Cerebral infarction, unspecified (principal); G83.24 Monoplegia of upper limb affecting left nondominant side; I10 Essential (primary) hypertension; Z20.828 Contact with and (suspected) exposure to other viral communicable diseases; Z98.890 Other specified postprocedural states; Z85.038 Personal history of other malignant neoplasm of large intestine; Z79.899 Other long term (current) drug therapy; Z79.82 Long term (current) use of aspirin
CPT/HCPCS: 36415; 70450; 70496; 70498; 70551; 80053; 80061; 81001; 83036; 83735; 84100; 84443; 84484; 85025; 85610; 85652; 85730; 86592; 93005; 93306; 96372; 97161; 99285; A9270; G0378; J1650; Q9967; U0002; 93010